=== PATIENT | female | born 1960 | race Two or more races ===

== ENCOUNTER 2018-10-30 05:25 | Inpatient (IN) | payer OTHER ==
[~2018-10-30 05:25] MED LIST: BREO ELLIPTA 21 EACH IH; LISINOPRIL-HCT1 EACH PO
[2018-10-31] MEDS ORDERED: PERCOCET 5-3251 EACH PO (09:47)
== END 2018-10-31 11:20 | disposition home or self-care (01) | DRG 627 ==
LOC: CIR.AMB 05:25 → O/R 16:23 → SURH 16:52
PROVIDERS: ADMIT Surgery
PROC: 0GTK0ZZ Resection of Thyroid Gland, Open Approach (ICD-10-PCS; principal; 2018-10-30 09:15)
DX: E04.2 Nontoxic multinodular goiter (principal)

== ENCOUNTER 2020-09-24 05:21 | Day surgery (SDC) | payer OTHER ==
[~2020-09-24 05:21] MED LIST changes: +PERCOCET 5-3251 EACH PO; +[UNRECOGNIZED DRUG - CODE] PO
== END 2020-09-24 20:32 | disposition home or self-care (01) ==
LOC: CIR.AMB 05:21
PROVIDERS: ATTEND Surgery
DX: D05.11 Intraductal carcinoma in situ of right breast (principal); D24.2 Benign neoplasm of left breast; Z20.822 Contact with and (suspected) exposure to COVID-19